=== PATIENT | male | born 2005 ===

== ENCOUNTER 2024-03-24 05:28 | Emergency (ER) | payer BC ==
[2024-03-24] MEDS ORDERED: Ondansetron PF 4 MG/2 ML Vial ONE (05:48)
[2024-03-24 06:08] LABS: #Basophils 0.03 10x3/uL (0.0-0.2); %Basophils 0.3 % (0.0-1.0); %Eosinophils 0.3 % (0.0-10.0); %Lymphocytes 15.9 % (28.0-48.0); %Monocytes 5.5 % (0.0-4.0); %Neutrophils 77.6 % (31.0-61.0); Hematocrit 41.2 % (42.0-52.0); Hemoglobin 13.8 g/dL (14.0-18.0); Mean Corpuscular HGB CONC 33.5 g/dL (32.0-36.0); Mean Corpuscular Hemoglobin 29.7 pg (25.0-35.0); Mean Corpuscular Volume 88.6 fL (78.0-98.0); Mean Platelet Volume 9.8 fL (7.4-10.4); Platelet Count 244 10x3/uL (130-400); Red Blood Cell (RBC) Count 4.65 mill/uL (4.00-5.20)
[2024-03-24 06:24] LABS: Bacteria/HPF None Seen HPF (None Seen); Bilirubin Negative (Negative); Blood, Urine Negative (Negative); CAUTI Indications for Culture Dysuria,urgency,freq; Clarity Clear (Clear); Glucose, Urine (Dipstick) Normal (Negative); Ketone, Urine Negative (Negative); Leukocyte Negative Leu/uL (Negative); Nitrite Negative (Negative); Protein, Urine (Dipstick) Negative (Neg-Trace); RBC/HPF 0-3 HPF (0-3); Specific Gravity, Urine 1.014 (1.002-1.036); Squamous Epithelial None Seen HPF (0-3); Urobilinogen Normal mg/dL (Less than 2); WBC/HPF None Seen HPF (0-3)
[2024-03-24 06:30] LABS: Urine Culture Reflex No No
[2024-03-24 06:32] LABS: ALT (SGPT) 73 U/L (8-55); AST (SGOT) 72 U/L (5-34); Albumin 4.2 g/dL (3.5-5.0); Alkaline Phosphatase 78 U/L (50-130); Anion Gap 15 mmol/L (10-20); BUN (Urea Nitrogen) 20 mg/dL (8.9-20.6); Bilirubin, Total 0.3 mg/dL (0.2-1.2); Calc. Creatinine Clearance 0 mL/min (70-130); Calcium 9.4 mg/dL (7.8-10.44); Carbon Dioxide 24 mmol/L (22-29); Chloride 110 mmol/L (98-107); Estimated GFR 104; Globulin 3.6 g/dL (2.4-3.5); Glucose 111 mg/dL (70-105); Lipase 12 U/L (8-78); Potassium 3.6 mmol/L (3.5-5.1); Protein, Total 7.8 g/dL (6.0-8.3); Sodium 145 mmol/L (136-145)
[2024-03-24] MEDS ORDERED: Iopamidol-370 76% 500 ML MDV (1 ML CHARGE) ONE (10:18)
== END 2024-03-24 09:23 | disposition home or self-care (01) ==
LOC: ERS 05:28
DX: K59.00 Constipation, unspecified (principal); R11.0 Nausea
CPT/HCPCS: 74177; 80053; 81001; 83690; 85025; 96374; J2405